=== PATIENT | female | born 1955 | race African-American/Black ===

== ENCOUNTER 2019-06-08 06:40 | Day surgery (SDC) | payer OTHER ==
[2019-06-07 18:21] VITALS: BMI 25.8
[~2019-06-08 06:40] MED LIST: TOBRAMYCIN/DEXAMETHASONE OPHTH. OINTMENT 1 TUBE OD ONE
[2019-06-08] MEDS ORDERED: ACETAMINOPHEN 325 MG TABLET (FP) PO PRN (06:45)
[2019-06-08] MEDS ORDERED: CIPROFLOXACIN HCL 0.3% OPHTH 2.5ML BOTTLE OP SCH (06:45)
[2019-06-08] MEDS ORDERED: KETOROLAC TROMETHAMINE 0.5% EYE DROP 1 DROP DROPS OP SCH (06:45)
[2019-06-08] MEDS ORDERED: TROPICAMIDE 1% OPHTH SOLN 15 ML BOTTLE OP SCH (06:45)
[2019-06-08] MEDS ORDERED: PHENYLEPHRINE 2.5% OPHTH SOLN 15 ML BOTTLE OP SCH (06:45)
[2019-06-08] MEDS ORDERED: CHONDROITIN SU A/HYALUR SOD 1 KIT ONE (07:03)
[2019-06-08] MEDS ORDERED: TOBRAMYCIN/DEXAMETHASONE OPHTH. OINTMENT 1 TUBE ONE (07:10)
[2019-06-08] MEDS ORDERED: EPINEPHrine/PF 1 MG/1 ML (1:1,000) AMPULE ONE (07:10)
[2019-06-08] MEDS ORDERED: TRYPAN BLUE 0.5 ML DISP.SYRIN ONE (07:11)
[2019-06-08] MEDS ORDERED: BUPIVACAINE HCL/PF 0.75% 10 ML VIAL ONE (07:11)
[2019-06-08] MEDS ORDERED: ACETYLCHOLINE 1:100 INTRA-OCUL 20 MG/2 ML KIT ONE (07:11)
[2019-06-08] MEDS ORDERED: TETRACAINE 0.5% OPHTH SOLN 2 ML BOTTLE ONE (07:11)
[2019-06-08] MEDS ORDERED: POVIDONE-IODINE 5% OPHTHALMIC PREP 30 ML SOLUTION ONE (07:11)
[2019-06-08] MEDS ORDERED: BSS (NA/CA/MG/K) BALANCED SALT SOLUTION OPHTH SOLN 15 ML BOTTLE ONE (07:11)
[2019-06-08] MEDS ORDERED: LIDOCAINE HCL/PF 2% SDV 5ML VIAL ONE (07:11)
[2019-06-08] MEDS ORDERED: TROPICAMIDE 1% OPHTH SOLN 15 ML BOTTLE ONE (07:16)
[2019-06-08] MEDS ORDERED: KETOROLAC TROMETHAMINE 0.5% EYE DROP 1 DROP DROPS ONE (07:16)
[2019-06-08] MEDS ORDERED: PHENYLEPHRINE 2.5% OPHTH SOLN 15 ML BOTTLE ONE (07:16)
--- NOTE | 2019-06-08 07:27 | HP ---
- Patient Scheduled date of Surgery: 06/08/19 Scheduled Surgical Procedure: Phacoemulsification and cataract extraction with PCIOL (mature cataract) Affected Eye: Right Chief Complaint (Indication for surgery): Decreased vision affecting ADLs - Ocular History Other Eye History: POAG (fuch's dystrophy) Eye Medications: timolol 2/2, latanoprost qhs/qhs Previous Eye Surgery: none - Medical History Illnesses: Diabetes, Other (cvs) Current Medications: Ambulatory Orders Insulin Glargine,Hum.rec.anlog [Lantus] 24 unit SQ DAILY 06/07/19 Insulin Lispro [Humalog] 10 unit SQ ASDIR 06/07/19 Insulin Lispro [Humalog] 100 unit SQ ACDIN 06/07/19 Latanoprost/Pf [Latanoprost 0.005% Eye Drop] 1 drop OU HS 06/07/19 Allergies/Adverse Reactions: Allergies Allergy/AdvReac Type Severity Reaction Status Date / Time No Known Allergies Allergy Verified 06/07/19 18:27 Ocular Examination - Best Corrected Visual Acuity Distance: Right eye: HM Distance: Left eye: CF - External/Slit Lamp Examination Abnormalities: decreased tbut - Intraocular Pressure Intraocular Pressure - Right eye: 13 Intraocular Pressure-Left eye: 13 - Lens Lens: 4+ NS brunescent, 3+ pSC - Vitreous/Retina Vitreous/Retina: C:D 0.8 m/v/p wnl - Special Examination M - Right eye: +0.50 M - Left eye: +1.00-0.75 x 090 K - Right eye: 40/40.75 x175 K - Left eye: 40.5/40.75 x120 AL - Right eye: 24.19 AL - Left eye: 24.66 IOL bag: +20.0 AUOOTO IOL sulcus: +19.0 MN60AC IOL AC: +17.0 MTA4uo - Impression Impression: Cataract Right Eye (mature with Miosis ), Other - Plan Plan: Phacoemulsification and cataract extraction - IOL Right eye Post-hospital care will be provided in office on: 06/09/19
--- NOTE | 2019-06-08 07:28 | HP ---
History & Physical Update - History History: No Change - Physical Physical: No Change - Assessment Assessment: No Change - Plan Plan: No Change (H and P reviewed by Dr. Monk , no changes)
[2019-06-08] MEDS ORDERED: PHENYLEPHRINE 2.5% OPHTH SOLN 15 ML BOTTLE OD ONE ×3 (07:35→07:45)
[2019-06-08] MEDS ORDERED: CIPROFLOXACIN HCL 0.3% OPHTH 2.5ML BOTTLE OD ONE ×3 (07:35→07:45)
[2019-06-08] MEDS ORDERED: TROPICAMIDE 1% OPHTH SOLN 15 ML BOTTLE OD ONE ×3 (07:35→07:45)
[2019-06-08] MEDS ORDERED: KETOROLAC TROMETHAMINE 0.5% EYE DROP 1 DROP DROPS OD ONE ×3 (07:35→07:45)
[2019-06-08] MEDS ORDERED: PROPOFOL 20 ML ONE (08:07)
[2019-06-08] MEDS ORDERED: MIDAZOLAM HCL 2 MG/2 ML SINGLE DOSE VIAL ONE ×2 (08:07→08:19)
[2019-06-08] MEDS ORDERED: TETRACAINE 0.5% OPHTH SOLN 2 ML BOTTLE TP ONE (08:15)
[2019-06-08] MEDS ORDERED: LIDOCAINE HCL/PF 2% SDV 5ML VIAL INF ONE (08:18)
[2019-06-08] MEDS ORDERED: BUPIVACAINE HCL/PF 0.75% 10 ML VIAL PNB ONE (08:18)
[2019-06-08] MEDS ORDERED: BUPIVACAINE HCL/PF 0.75% 10 ML VIAL RB ONE (08:19)
[2019-06-08] MEDS ORDERED: LIDOCAINE HCL/PF 2% SDV 5ML VIAL PNB ONE (08:19)
[2019-06-08] MEDS ORDERED: TRYPAN BLUE 0.5 ML DISP.SYRIN IO ONE (08:27)
[2019-06-08] MEDS ORDERED: CHONDROITIN SU A/HYALUR SOD 1 KIT IO ONE (08:28)
[2019-06-08] MEDS ORDERED: EPINEPHrine/PF 1 MG/1 ML (1:1,000) AMPULE SQ ONE (08:35)
[2019-06-08] MEDS ORDERED: TOBRAMYCIN/DEXAMETHASONE OPHTH. OINTMENT 1 TUBE OD ONE (08:58)
--- NOTE | 2019-06-08 09:08 | OP ---
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
[2019-06-08 09:38] VITALS: TEMP 98
[2019-06-08 10:14] VITALS: BP 148/66; PULSE 88
--- NOTE | 2019-06-08 16:35 | OP ---
DATE OF OPERATION: DATE OF DICTATION: 06/08/2019 PREOPERATIVE DIAGNOSIS: Mature cataract and myosis, right eye. POSTOPERATIVE DIAGNOSIS: Mature cataract and myosis, right eye. PROCEDURE: Phacoemulsification and cataract extraction with insertion posterior chamber intraocular lens using Trypan blue and synechialysis. SURGEON: Lia Melissa MD MANAGER MANAGEMENT: None. ANESTHESIA: Retrobulbar block. ANESTHESIOLOGIST: Indira Moralez MD OPERATIVE PROCEDURE: Following satisfactory intravenous sedation, the patient received a 50:50 mixture of lidocaine 2% and Marcaine 0.75%. A van Lint lid block was delivered to the right eye using 4 mL of the mixture and a retrobulbar injection using 4 mL of the mixture. The patient was then prepped and draped in the usual sterile fashion so as to only expose the right eye. Ophthalmic Betadine was instilled into the inferior fornix. The lashes were taped out of the surgical field. An eyelid speculum was placed into the right eye. Paracentesis was made in superotemporal clear cornea at the limbus. An air bubble was injected into the anterior chamber, and Trypan blue was dripped on the anterior capsular edge. Viscoelastic material was instilled into the anterior chamber via the paracentesis and to remove the Trypan blue. A 2.4-mm keratome was then used to create the main incision in temporal clear cornea at the limbus. The was also used to break up the synechiae at 5:30 and to perform a synechialysis. A continuous curvilinear capsulorrhexis was then performed using a cystotome and Utrata forceps. Hydrodissection of the lens cortex was performed using BSS on a cannula until the nucleus was noted to be freely rotating. The phacoemulsification tip was then inserted via the main wound and used to scope 2 perpendicular grooves into the lens nucleus. The nucleus was cracked into 4 quadrants. Each quadrant was lifted out of the capsule into the iris plane and individually phacoemulsified. The remaining cortical material was then aspirated using the irrigation/aspiration port. The capsular bag was inflated using Provisc, and a preloaded AcrySof lens model [id number] power +20.0 diopters was injected into the capsular bag and centered using a Sinskey hook. The residual viscoelastic was removed from the anterior chamber using irrigation and aspiration. The wound edges were hydrated using BSS. The wound was tested for leakage, it was found to be watertight. Tobradex ointment was placed in the eye, and the speculum was removed from the eye, and the eyelid was closed. A sterile dressing and shield were placed over the eye. The patient was transferred to the recovery room in stable condition, told to follow up in 1 day. George [id number]
== END 2019-06-08 10:15 ==
LOC: JASU-SURG 06:40
PROVIDERS: ATTEND Ophthalmology
PROC: 08RJ3JZ Replacement of Right Lens with Synthetic Substitute, Percutaneous Approach (ICD-10-PCS; principal; 2019-06-08 07:30)
DX: H25.091 Other age-related incipient cataract, right eye (principal); H57.03 Miosis; H21.501 Unspecified adhesions of iris, right eye; E11.9 Type 2 diabetes mellitus without complications; Z79.4 Long term (current) use of insulin
CPT/HCPCS: 82962

== ENCOUNTER 2019-07-06 07:23 | Day surgery (SDC) | payer OTHER ==
[2019-07-05 10:23] VITALS: BMI 30.1
[~2019-07-06 07:23] MED LIST changes: +ACETAMINOPHEN 325 MG TABLET (FP) PO PRN; +CHONDROITIN SU A/HYALUR SOD 1 KIT IO ONE; +CIPROFLOXACIN HCL 0.3% OPHTH 2.5ML BOTTLE OP SCH; +EPINEPHrine/PF 1 MG/1 ML (1:1,000) AMPULE SQ ONE; +KETOROLAC TROMETHAMINE 0.5% EYE DROP 1 DROP DROPS OP SCH; +LIDOCAINE HCL 1% PRESERVATIVE FREE - 30ML VIAL IO ONE; +PHENYLEPHRINE 2.5% OPHTH SOLN 15 ML BOTTLE OP SCH; +TETRACAINE 0.5% OPHTH SOLN 2 ML BOTTLE TP ONE; -TOBRAMYCIN/DEXAMETHASONE OPHTH. OINTMENT 1 TUBE OD ONE; +TOBRAMYCIN/DEXAMETHASONE OPHTH. OINTMENT 1 TUBE TP ONE; +TROPICAMIDE 1% OPHTH SOLN 15 ML BOTTLE OP SCH
[2019-07-06] MEDS ORDERED: PHENYLEPHRINE 2.5% OPHTH SOLN 15 ML BOTTLE OS ONE ×3 (08:05→08:20)
[2019-07-06] MEDS ORDERED: CIPROFLOXACIN HCL 0.3% OPHTH 2.5ML BOTTLE OS ONE ×3 (08:05→08:20)
[2019-07-06] MEDS ORDERED: TROPICAMIDE 1% OPHTH SOLN 15 ML BOTTLE OS ONE ×3 (08:05→08:20)
[2019-07-06] MEDS ORDERED: KETOROLAC TROMETHAMINE 0.5% EYE DROP 1 DROP DROPS OS ONE ×3 (08:05→08:20)
[2019-07-06] MEDS ORDERED: PHENYLEPHRINE 2.5% OPHTH SOLN 15 ML BOTTLE ONE (08:42)
[2019-07-06] MEDS ORDERED: TROPICAMIDE 1% OPHTH SOLN 15 ML BOTTLE ONE (08:42)
[2019-07-06] MEDS ORDERED: KETOROLAC TROMETHAMINE 0.5% EYE DROP 1 DROP DROPS ONE (08:42)
[2019-07-06] MEDS ORDERED: CIPROFLOXACIN HCL 0.3% OPHTH 2.5ML BOTTLE ONE (08:42)
[2019-07-06] MEDS ORDERED: MIDAZOLAM HCL 2 MG/2 ML SINGLE DOSE VIAL ONE (09:54)
[2019-07-06] MEDS ORDERED: PROPOFOL 20 ML ONE (09:54)
--- NOTE | 2019-07-06 09:54 | HP ---
- Patient Scheduled date of Surgery: 07/06/19 Scheduled Surgical Procedure: Phacoemulsification and cataract extraction with PCIOL Affected Eye: Left Chief Complaint (Indication for surgery): Decreased vision affecting ADLs - Ocular History Other Eye History: Other (fuch's dystrophy) Eye Medications: latanoprost , timolol, cipro Previous Eye Surgery: s/p ce/pciol OD - Medical History Illnesses: Diabetes, Other (cva) Current Medications: Ambulatory Orders Insulin Glargine,Hum.rec.anlog [Lantus] 24 unit SQ HS 06/07/19 Insulin Lispro [Humalog] 0 unit SQ ACDIN 06/07/19 Insulin Lispro [Humalog] 10 unit SQ ASDIR 06/07/19 Latanoprost/Pf [Latanoprost 0.005% Eye Drop] 1 drop OU HS 06/07/19 Colloidal Silver 1 tab PO BID 07/05/19 Allergies/Adverse Reactions: Allergies Allergy/AdvReac Type Severity Reaction Status Date / Time No Known Allergies Allergy Verified 06/08/19 07:38 Ocular Examination - Best Corrected Visual Acuity Distance: Right eye: 20/30 Distance: Left eye: CF 2" - External/Slit Lamp Examination Abnormalities: 1+ guttatae - Intraocular Pressure Intraocular Pressure - Right eye: 16 Intraocular Pressure-Left eye: 16 - Lens Lens: 3+ NS Brunescent, 3+ PSC - Vitreous/Retina Vitreous/Retina: C:D 0.7b m/v/p wnl hazy view - Special Examination M - Right eye: plano -0.75 x 120 M - Left eye: no reflex K - Right eye: 41.50/42.50 x 060 K - Left eye: 40.50/40.75 x 125 AL - Right eye: 24.91 AL - Left eye: 24.66 IOL bag: +20.0 Auooto IOL sulcus: +19.0 MN60AC IOL AC: +17.0 MTA 4UO - Impression Impression: Cataract Left Eye (mature) - Plan Plan: Phacoemulsification and cataract extraction - IOL Left eye Post-hospital care will be provided in office on: 07/07/19
--- NOTE | 2019-07-06 09:55 | HP ---
History & Physical Update - History History: No Change - Physical Physical: No Change - Assessment Assessment: No Change - Plan Plan: No Change (H and P reivewed from 06/14/[address] Monk no changes)
[2019-07-06] MEDS ORDERED: LIDOCAINE HCL/PF 2% SDV 5ML VIAL ONE (09:58)
[2019-07-06] MEDS ORDERED: EPINEPHrine/PF 1 MG/1 ML (1:1,000) AMPULE ONE (09:58)
[2019-07-06] MEDS ORDERED: BUPIVACAINE HCL/PF 0.75% 10 ML VIAL ONE (09:58)
[2019-07-06] MEDS ORDERED: TRYPAN BLUE 0.5 ML DISP.SYRIN ONE (09:59)
[2019-07-06] MEDS ORDERED: TOBRAMYCIN/DEXAMETHASONE OPHTH. OINTMENT 1 TUBE ONE (09:59)
[2019-07-06] MEDS ORDERED: TETRACAINE 0.5% OPHTH SOLN 2 ML BOTTLE TP ONE (10:11)
[2019-07-06] MEDS ORDERED: BUPIVACAINE HCL/PF 0.75% 10 ML VIAL PNB ONE ×2 (10:15→10:16)
[2019-07-06] MEDS ORDERED: LIDOCAINE HCL/PF 2% SDV 5ML VIAL PNB ONE (10:15)
[2019-07-06] MEDS ORDERED: LIDOCAINE HCL/PF 2% SDV 5ML VIAL INF ONE (10:16)
[2019-07-06] MEDS ORDERED: LIDOCAINE HCL 1% PRESERVATIVE FREE - 30ML VIAL IO ONE (10:27)
[2019-07-06] MEDS ORDERED: TRYPAN BLUE 0.5 ML DISP.SYRIN IO ONE (10:28)
[2019-07-06] MEDS ORDERED: CHONDROITIN SU A/HYALUR SOD 1 KIT IO ONE ×2 (10:29)
[2019-07-06] MEDS ORDERED: EPINEPHrine/PF 1 MG/1 ML (1:1,000) AMPULE SQ ONE (10:30)
[2019-07-06] MEDS ORDERED: ONDANSETRON 4 MG/2 ML VIAL IVPUSH PRN (10:53)
[2019-07-06] MEDS ORDERED: TOBRAMYCIN/DEXAMETHASONE OPHTH. OINTMENT 1 TUBE TP ONE (10:54)
[2019-07-06] MEDS ORDERED: LACTATED RINGERS SOLUTION 1,000 ML IV SCH (11:00)
--- NOTE | 2019-07-06 11:02 | OP ---
Ophthalmology Operative Note Pre-Operative Diagnosis: Mature cataract Affected Eye: Left Operation: Phacoemulsification and cataract extraction with PCIOL Findings: mature cataract left eye Post-Operative Diagnosis: Same as Pre-op Inspector Agricultural Commodities: None Anesthesiologist: Mag Joaquin Anesthesia: Retrobulbar Specimens Removed: none Estimated blood loss: < 1 cc Drains & Tubes with Location: None Operative Report Dictated: Yes
[2019-07-06 14:46] VITALS: BP 148/78; PULSE 88; TEMP 98.2
--- NOTE | 2019-07-25 19:04 | OP ---
DATE OF OPERATION: DATE OF DICTATION: 07/25/2019 PREOPERATIVE DIAGNOSIS: Mature cataract, left eye. POSTOPERATIVE DIAGNOSIS: Mature cataract, left eye. PROCEDURE: Phacoemulsification and cataract extraction with insertion of posterior chamber intraocular lens, left eye, using trypan blue. SURGEON: Lia Kim MD DIRECTOR PRODUCT MANAGEMENT: None. ANESTHESIA: Topical. ANESTHESIOLOGIST: LISA Sosa-AARTI DESCRIPTION OF PROCEDURE: Following satisfactory intravenous sedation, the patient received local anesthesia using a 50/50 mixture of lidocaine 2% and Marcaine 0.75%. A van Lint lid block was delivered to the left eye using 4 mL of the mixture and a retrobulbar injection using 4 mL of the mixture. The patient was then prepped and draped in the usual sterile fashion so as to expose only the left eye. Ophthalmic Betadine was instilled into the inferior fornix. The lashes were taped out of the surgical field. An eyelid speculum was placed into the left eye. A paracentesis was made in inferior temporal clear cornea at the limbus. An air bubble was injected into the anterior chamber and trypan blue was painted on the anterior capsular edge. Viscoelastic material was instilled into the anterior chamber via the paracentesis. A 2.4-mm keratome was then used to create the main incision in temporal clear cornea at the limbus. A continuous curvilinear capsulorrhexis was performed using a cystotome and Utrata forceps. Hydrodissection of the lens cortex was performed using BSS on a cannula until the nucleus was noted to be freely rotating. The phacoemulsification tip was inserted via the main wound and used to sculpt 2 perpendicular grooves into the lens nucleus. The nucleus was cracked into 4 quadrants. Each quadrant was lifted out of the capsule into the iris plane and individually phacoemulsified. The remaining cortical material was then aspirated using the irrigation and aspiration port. The capsular bag was inflated using Provisc, and a preloaded AcrySof lens model [id number], power 20.0 diopters, was injected into the capsular bag and centered using a Sinskey hook. The residual viscoelastic material was removed from the anterior chamber using irrigation and aspiration. The wound edges were hydrated using BSS. The wound was tested for leakage. It was found to be watertight. TobraDex ointment was placed in the eye. The speculum was removed from the eye. The eyelid was closed. A sterile dressing and shield were placed over the eye. The patient was transferred to the recovery room in stable condition, told to follow up in 1 day. LIA KIM M.D. [id number] MTDD
== END 2019-07-06 12:50 ==
LOC: JASU-SURG 07:23
PROVIDERS: ATTEND Ophthalmology
PROC: 08RK3JZ Replacement of Left Lens with Synthetic Substitute, Percutaneous Approach (ICD-10-PCS; principal; 2019-07-06 07:30)
DX: H25.092 Other age-related incipient cataract, left eye (principal); E11.9 Type 2 diabetes mellitus without complications; Z79.84 Long term (current) use of oral hypoglycemic drugs
CPT/HCPCS: 82962